=== PATIENT | female | born 1930 | race Caucasian/White ===

== ENCOUNTER 2019-08-25 16:16 | Inpatient (IN) | payer MEDICARE ==
[2019-08-25 16:36] LABS: #Basophils 0.1 thou/uL (0.0-0.2); #Eosinphils 0.1 thou/uL (0.0-0.7); #Lymphocytes 1.1 thou/uL (1.20-3.40); #Monocytes 0.6 thou/uL (0.11-0.59); #Neutrophils 4.4 thou/uL (1.40-6.50); %Basophils 0.9 % (0.0-1.0); %Eosinophils 1.8 % (0.0-10.0); %Lymphocytes 16.9 % (21.0-51.0); %Monocytes 10.1 % (0.0-10.0); %Neutrophils 70.3 % (42.0-75.0); Hemoglobin 13.2 g/dL (12.0-16.0); Mean Corpuscular HGB CONC 34.6 g/dL (32.0-36.0); Mean Corpuscular Hemoglobin 33.7 pg (27.0-31.0); Mean Corpuscular Volume 97.3 fL (78.0-98.0); Platelet Count 210 thou/uL (130-400); RBC Distribution Width 12.1 % (11.5-14.5); Red Blood Cell (RBC) Count 3.91 mill/uL (4.20-5.40); White Blood Cell (WBC) Count 6.2 thou/uL (4.8-10.8)
[2019-08-25 16:43] LABS: PTT 28.3 SEC (22.9-36.1); Prothrombin Time 13.5 SEC (12.0-14.7)
[2019-08-25 16:50] LABS: ALT (SGPT) 15 U/L (8-55); AST (SGOT) 19 U/L (5-34); Albumin 4.1 g/dL (3.4-4.8); Alkaline Phosphatase 50 U/L (40-110); Anion Gap 14 mmol/L (10-20); BUN (Urea Nitrogen) 17 mg/dL (9.8-20.1); Bilirubin, Total 0.4 mg/dL (0.2-1.2); CK (CPK) 122 U/L (29-168); Calc. Creatinine Clearance 0 mL/min (70-130); Calcium 9.5 mg/dL (7.8-10.44); Carbon Dioxide 22 mmol/L (23-31); Chloride 102 mmol/L (98-107); Estimated GFR-MDRD 41; Globulin 2.7 g/dL (2.4-3.5); Glucose 141 mg/dL (83-110); Potassium 3.9 mmol/L (3.5-5.1); Protein, Total 6.8 g/dL (6.0-8.3); Sodium 134 mmol/L (136-145)
[2019-08-25 17:12] LABS: CKMB 3.3 ng/mL (0-6.6)
--- NOTE | 2019-08-25 17:16 | RAD ---
PORTABLE CHEST: 08/25/19 HISTORY: TIA, altered mental status. Heart size within normal limits. There are atherosclerotic changes of the aorta. The lungs are clear of any infiltrative process. IMPRESSION: No active intrathoracic disease. POS: [facility]
[2019-08-25] MEDS ORDERED: risperiDONE 1 MG TAB ONE (17:26)
--- NOTE | 2019-08-25 17:28 | CT ---
CT OF BRAIN PERFORMED WITHOUT CONTRAST ENHANCEMENT: 08/25/19 HISTORY: Altered mental status. There is generalized ventricular and sulcal prominence. There is no signs for intracerebral hemorrhag e or extra-axial fluid collections. The mastoid air cells and visualized sinuses are clear. IMPRESSION: No acute intracranial abnormalities. POS: [facility]
[2019-08-25 18:10] LABS: Bilirubin Negative (Negative); Blood, Urine Negative (Negative); Clarity Clear (Clear); Glucose, Urine (Dipstick) Normal (Negative); Leukocyte Negative Leu/uL (Negative); Nitrite Negative (Negative); Protein, Urine (Dipstick) Negative (Neg-Trace); Urobilinogen Normal mg/dL (Less than 2)
[2019-08-25 19:45] LABS: Lactic Acid 1.2 mmol/L (0.5-2.2)
[2019-08-25 19:54] LABS: Troponin I 0.037 ng/mL (< 0.028)
[2019-08-25] MEDS ORDERED: Ondansetron PF 4 MG/2 ML Vial IVP PRN (20:10)
[2019-08-25] MEDS ORDERED: Nitroglycerin 0.4 MG TAB (25 Tab Bottle) SL PRN (20:13)
--- NOTE | 2019-08-25 21:00 | HP ---
PRESENTING COMPLAINT: Altered mental status, possible stroke. HISTORY OF PRESENT ILLNESS: Ms. Milagros Avalos is an 88-year-old female with a past medical history of dementia, group home resident at the [place], ileostomy, unclear reason, baseline aphasia, oriented at baseline to x1, who was brought in from the group home because of unresponsiveness. The patient on arrival in the ED was being worked up for stroke, but she became more awoken and conversant although markedly confused. She later had some episodes of agitation and was started back on her Risperdal. The patient during the time of interview is very confused, repeatedly talking about things on the wall. She is barely unable to talk about her name. She was noted with atrial fibrillation with RVR, which is new. She has been started on Cardizem drip. The patient denies any chest pain, although she is very unreliable. PAST MEDICAL HISTORY: Significant for dementia, CAD, ileostomy status, aphasia, GERD, hypothyroidism. ALLERGIES: PENICILLIN. HOME MEDICATIONS: See full medication list. CODE STATUS: The patient is DNR. REVIEW OF SYSTEMS: Unable to obtain given dementia. FAMILY HISTORY: Noncontributory in this 88-year-old female. PHYSICAL EXAMINATION: CURRENT VITAL SIGNS: Blood pressure of 134/83, pulse of 105, ranging up to 118 on Cardizem drip, O2 saturation is 95% on room air, respiratory rate of 17, temperature afebrile. GENERAL: Thin built elderly female awake, conversant, but markedly confused. HEENT: Head is atraumatic, normocephalic. Pupils are equal, reactive to light. Dry oral mucosa. NECK: No JVD. No carotid bruits. RESPIRATORY: Good air entry. No crepitation. CARDIOVASCULAR: S1, S2. Irregular rhythm with a loud A2. GI: Abdomen is full, soft. Ileostomy status in-situ, clear effluent in bag. EXTREMITIES: No pedal edema. No calf tenderness. NEUROLOGIC: The patient is awake, but confused. LABORATORY DATA: WBC 6.2, hemoglobin 13, platelets 210. INR 1.0, PTT 28. BUN 17, creatinine 1.23. Lactic acid 2.3, repeat of 1.2. Potassium 3.9, troponin 0.03, repeat of 0.037. Urinalysis was negative. Head CT shows no acute intracranial pathology. IMAGING DATA: Chest x-ray shows no active intrathoracic disease. EKG shows atrial fibrillation at a rate of 107 beats per minute. No ST-segment changes. IMPRESSION: 1. New onset atrial fibrillation with rapid ventricular response. 2. Baseline dementia. 3. History of hypertension. 4. Hypothyroidism. PLAN: We will admit the patient to telemetry unit. We will continue Cardizem drip. We will manage the patient for the following also. 1. Atrial fibrillation with RVR. We will obtain TSH as well as magnesium. Given history of hypothyroidism, we will restart Synthroid dosage. Continue Cardizem drip and wean as tolerated. We will add metoprolol to the patient's regimen for better rate control. In a.m., if the patient is tolerating Cardizem, we will consider to switch to Cardizem p.o. Given patient's dementia, I do not think the patient is a candidate for anticoagulation. We will discuss with daughter when she arrives on the risk and benefit of anticoagulation, which I would not advise in this elderly female. 2. Hypertension. Continue medications as outlined above. 3. Dementia. Resume Risperdal for behavior control. 4. DVT prophylaxis, subcutaneous Lovenox. 5. Advanced directives, the patient is a DNR. Total time spent in review of record, evaluation of the patient, and discussion was greater than 60 minutes. Job ID: [id number]
[2019-08-25] MEDS: Metoprolol Tartrate 50 MG TAB PO SCH (22:15)
[2019-08-25] MEDS: risperiDONE 0.25 MG TAB PO SCH (22:15)
[2019-08-25 23:18] LABS: Troponin I 0.035 ng/mL (< 0.028)
[2019-08-25] MEDS ORDERED: Metoprolol Tartrate 50 MG TAB PO SCH (23:45)
[2019-08-25] MEDS ORDERED: Diltiazem HCl 125 MG, Admixture Fee 1 EACH in Sodium Chloride 0.9% 100 ML IVPB SCH (23:45)
[2019-08-26 03:53] VITALS: BMI 21.7
[2019-08-26 05:14] LABS: #Basophils 0.1 thou/uL (0.0-0.2); #Eosinphils 0.1 thou/uL (0.0-0.7); #Lymphocytes 1.2 thou/uL (1.20-3.40); #Monocytes 0.6 thou/uL (0.11-0.59); #Neutrophils 5.3 thou/uL (1.40-6.50); %Basophils 0.8 % (0.0-1.0); %Lymphocytes 16.3 % (21.0-51.0); %Monocytes 8.1 % (0.0-10.0); %Neutrophils 73.8 % (42.0-75.0); Hemoglobin 12.6 g/dL (12.0-16.0); Mean Corpuscular HGB CONC 34.2 g/dL (32.0-36.0); Mean Corpuscular Hemoglobin 33.4 pg (27.0-31.0); Mean Corpuscular Volume 97.5 fL (78.0-98.0); Mean Platelet Volume 5.9 fL (7.4-10.4); Platelet Count 217 thou/uL (130-400); RBC Distribution Width 12.1 % (11.5-14.5); Red Blood Cell (RBC) Count 3.79 mill/uL (4.20-5.40); White Blood Cell (WBC) Count 7.2 thou/uL (4.8-10.8)
[2019-08-26 05:27] LABS: Anion Gap 12 mmol/L (10-20); BUN (Urea Nitrogen) 13 mg/dL (9.8-20.1); Calc. Creatinine Clearance 33 mL/min (70-130); Calcium 9.2 mg/dL (7.8-10.44); Carbon Dioxide 26 mmol/L (23-31); Chloride 101 mmol/L (98-107); Estimated GFR-MDRD 53; Glucose 117 mg/dL (83-110); Potassium 3.6 mmol/L (3.5-5.1); Sodium 135 mmol/L (136-145)
[2019-08-26] MEDS ORDERED: Diltiazem HCl 125 MG, Admixture Fee 1 EACH in Sodium Chloride 0.9% 100 ML IVPB SCH (08:15)
[2019-08-26] MEDS ORDERED: Prevnar 13-Val Conj/PF 0.5 ML SYRINGE IM ONE (09:00)
[2019-08-26] MEDS ORDERED: FLU VACC TS2019-20(65YR UP)/PF 180 MCG/0.5 ML SYRINGE IM ONE (09:00)
[2019-08-26] MEDS ORDERED: Enoxaparin Sodium 30 MG/0.3 ML SYRINGE SC SCH (09:00)
[2019-08-26] MEDS: risperiDONE 0.25 MG TAB PO SCH ×2 (09:41→20:45)
[2019-08-26] MEDS: Metoprolol Tartrate 50 MG TAB PO SCH ×2 (09:41→20:38)
[2019-08-26] MEDS: Sodium Chloride 0.9% 1,000 ML IV SCH (11:59)
--- NOTE | 2019-08-26 12:48 | PDOC.HOSPP ---
- Subjective Encounter Date: 08/26/19 Encounter Time: 11:00 Subjective: awake, not oriented follows simple verbal stimuli daughter at bedside - Objective Vital Signs & Weight: Vital Signs (12 hours) Temp Pulse Resp BP Pulse Ox 08/26/19 11:56 97.9 F 64 16 106/53 L 97 08/26/19 07:41 98.3 F 86 16 128/75 96 08/26/19 07:30 96 08/26/19 04:00 97.3 F L 68 16 122/59 L 96 Weight Weight 118 lb 6.4 oz I&O: 08/25/19 08/26/19 08/27/19 06:59 06:59 06:59 Intake Total 530 Output Total 1500 Balance -970 Result Diagrams: 08/26/19 04:57 08/26/19 04:57 Additional Labs: Accuchecks 08/25/19 16:28 POC Glucose 145 H Hospitalist ROS - Medication Medications: Active Medications Generic Name Dose Route Start Last Admin Trade Name Freq PRN Reason Stop Dose Admin Sodium Chloride 1,000 mls @ 70 mls/hr 08/26/19 12:00 08/26/19 11:59 Normal Saline 0.9% IV 1,000 mls .[id number] DENTON Administration Metoprolol Tartrate 50 mg 08/25/19 21:00 08/26/19 09:41 Lopressor PO 50 mg BID DENTON Administration Risperidone 0.5 mg 08/25/19 21:00 08/26/19 09:41 Risperidone PO 0.5 mg BID DENTON Administration - Exam General Appearance: awake alert Eye: PERRL, anicteric sclera ENT: no oropharyngeal lesions, moist mucosa Neck: supple, no JVD Heart: no murmur, irregular Respiratory: no wheezes, no rales Gastrointestinal: soft, non-tender, non-distended, normal bowel sounds Extremities: no cyanosis, no edema Neurological: cranial nerve grossly intact, no focal deficits Hosp A/P (1) Atrial fibrillation with RVR Code(s): I48.91 - UNSPECIFIED ATRIAL FIBRILLATION Status: Acute (2) Dementia Code(s): F03.90 - UNSPECIFIED DEMENTIA WITHOUT BEHAVIORAL DISTURBANCE Status: Chronic Qualifiers: Dementia type: Alzheimer's disease (3) CAD (coronary artery disease) Code(s): I25.10 - ATHSCL HEART DISEASE OF [place] CORONARY ARTERY W/O ANG PCTRS Status: Chronic Qualifiers: Coronary Disease-Associated Artery/Lesion type: [place] artery [place] vs. transplanted heart: [place] heart Associated angina: without angina Qualified Code(s): I25.10 - Atherosclerotic heart disease of [place] coronary artery without angina pectoris (4) HTN (hypertension) Code(s): I10 - ESSENTIAL (PRIMARY) HYPERTENSION Status: Chronic Qualifiers: Hypertension type: essential hypertension Qualified Code(s): I10 - Essential (primary) hypertension (5) Hypothyroidism Code(s): E03.9 - HYPOTHYROIDISM, UNSPECIFIED Status: Chronic Qualifiers: Hypothyroidism type: unspecified Qualified Code(s): E03.9 - Hypothyroidism , unspecified (6) H/O ileostomy Code(s): Z98.890 - OTHER SPECIFIED POSTPROCEDURAL STATES Status: Chronic - Plan prior h/o stent x1 in 2009, had heavy GI bleeding post antiplatelet agents and had total colectomy with ileostomy per daughter no h/o afib in the past is on cardizem 5mg/hr, lopressor 50mg bid, asp, lovenox full dose for now cardiology consult, echo pt is dnar, d/w daughter and POA at bedside free T3,4 and TSH in am is a resident of [facility] has dementia and is on risperdal bid for behavioural issues with dementia per daughter
[2019-08-26] MEDS ORDERED: Amiodarone 150 MG, Admixture Fee 1 EACH in Dextrose 5% in Water 100 ML IVPB SCH (14:00)
[2019-08-26] MEDS: Acetaminophen 325 MG TAB PO PRN (14:29)
[2019-08-26] MEDS: Amiodarone 450 MG in Dextrose 5% in Water 250 ML IVPB SCH ×2 (14:35→23:45)
--- NOTE | 2019-08-26 19:33 | CON ---
DATE OF CONSULTATION: HISTORY OF PRESENT ILLNESS: Milagros Avalos is an 88-year-old white female, admitted with mental status changes and atrial fibrillation. In 2009 while living in [place], she had myocardial infarction and a stent was placed. She has not had any further coronary interventions, however, is of note that she is on Ranexa. She has dementia and baseline aphasia and possible strokes in the past. She moved to [place] with her daughter and 2 weeks ago, she was placed in [facility]. She had agitation and unresponsiveness and was transferred for further evaluation. She was found to be in atrial fibrillation with fast ventricular response. She denies any palpitations, chest pain, or shortness of breath. PAST MEDICAL HISTORY: Coronary artery disease, dementia, aphasia, hypothyroidism. MEDICATIONS: 1. Aspirin 81 daily. 2. Plavix 75 mg daily. 3. Carvedilol 3.125 b.i.d. 4. Ranexa 500 mg b.i.d. 5. Synthroid 75 mcg daily. 6. Nitroglycerin p.r.n. 7. Risperdal 0.5 b.i.d. ALLERGIES: PENICILLIN. SOCIAL HISTORY: Unobtainable due to her aphasia and dementia. FAMILY HISTORY: Unobtainable due to her aphasia and dementia. REVIEW OF SYSTEMS: Unobtainable due to her aphasia and dementia. PHYSICAL EXAMINATION: VITAL SIGNS: Blood pressure 106/53, pulse of 64. HEENT: PERRL. NECK: Supple. CHEST: Clear. CARDIAC: S1 and S2 normal without any S3, S4, or murmurs. Carotid upstrokes normal without bruits. ABDOMEN: Normal bowel sounds without tenderness or organomegaly. EXTREMITIES: Revealed no clubbing, cyanosis, or edema. NEUROLOGICAL: The patient is mildly aphasic. LABORATORY DATA: EKG revealed atrial fibrillation with fast ventricular response with poor R-wave progression. There also is evidence of possible inferior infarction. Hemoglobin 12.6, hematocrit 37.0, white count 7200, platelets 217, 000. Sodium 135, potassium 3.6, chloride 101, carbon dioxide 26, BUN 13, creatinine 0.99. Troponin I 0.037. TSH is normal. IMPRESSION: 1. Newly documented atrial fibrillation. She converted to sinus rhythm, but still has frequent runs of atrial fibrillation lasting 10 to 15 seconds. 2. Mental status changes. 3. Dementia. 4. History of myocardial infarction with stent placement in 2009. 5. Hypertension. RECOMMENDATIONS: Ms. Avalos's daughter states that she only had a fall 2-3 years ago while living in [place] when she was leaning over trying to kill an insect. With history of TIA like symptoms and atrial fibrillation, I do feel that she should be anticoagulated as long as she does not start to have significant falls. Plavix will be discontinued. Instead, she will be placed on low-dose Eliquis-2.5 mg b.i.d. due to her weight and age of greater than 80. Echocardiogram will be performed to assess left ventricular function. She will be started on intravenous amiodarone and hopefully suppression of her atrial fibrillation. Job ID: [id number] MTDD
[2019-08-26] MEDS: Dorzolamide HCl 2% Ophth Soln 10 ml Bottle EA EYE SCH (20:37)
[2019-08-26] MEDS: Apixaban 2.5 MG TAB PO SCH (20:38)
[2019-08-26] MEDS ORDERED: Enoxaparin Sodium 60 MG/0.6 ML SYRINGE SC SCH (21:00)
[2019-08-26] MEDS ORDERED: TIMOLOL MALEATE EA EYE SCH (21:00)
[2019-08-26] MEDS: Latanoprost 0.005% Ophth Soln 2.5 ml Bottle EA EYE SCH (23:45)
[2019-08-27] MEDS: Sodium Chloride 0.9% 1,000 ML IV SCH ×2 (02:02→16:22)
[2019-08-27 05:31] LABS: Hemoglobin 12.1 g/dL (12.0-16.0); Platelet Count 165 thou/uL (130-400)
[2019-08-27] MEDS: Levothyroxine Sodium 75 MCG TAB PO SCH (06:03)
[2019-08-27] MEDS: Dorzolamide HCl 2% Ophth Soln 10 ml Bottle EA EYE SCH ×2 (08:52→21:35)
[2019-08-27] MEDS: Metoprolol Tartrate 50 MG TAB PO SCH (08:52)
[2019-08-27] MEDS: Aspirin 81 mg Enteric Coated Tablet PO SCH (08:52)
[2019-08-27] MEDS: Apixaban 2.5 MG TAB PO SCH ×2 (08:52→21:35)
[2019-08-27] MEDS: risperiDONE 0.25 MG TAB PO SCH ×2 (08:53→21:35)
[2019-08-27] MEDS: HYDROcodone/Acetaminophen 5/325 mg Tablet PO PRN ×2 (08:56→22:13)
[2019-08-27] MEDS ORDERED: Clopidogrel Bisulfate 75 MG TAB PO SCH (09:00)
--- NOTE | 2019-08-27 11:03 | PDOC.HOSPP ---
- Subjective Encounter Date: 08/27/19 Encounter Time: 09:20 Subjective: awake, not in distress speaks a few words - Objective Vital Signs & Weight: Vital Signs (12 hours) Temp Pulse Resp BP Pulse Ox 08/27/19 07:34 97.7 F 66 18 140/87 99 08/27/19 07:30 99 08/27/19 03:20 97.8 F 62 20 128/56 L 98 08/26/19 23:32 97.5 F L 67 20 143/65 H 96 Weight Weight 118 lb 6.4 oz I&O: 08/26/19 08/27/19 08/28/19 06:59 06:59 06:59 Intake Total 1130 300 Output Total 1500 0 Balance -370 300 Result Diagrams: 08/27/19 05:03 08/27/19 05:03 Hospitalist ROS - Medication Medications: Active Medications Generic Name Dose Route Start Last Admin Trade Name Freq PRN Reason Stop Dose Admin Acetaminophen 650 mg 08/25/19 20:10 08/26/19 14:29 Tylenol PO 650 mg Q4H PRN Administration Headache/Fever/Mild Pain (1-3) Hydrocodone Bitart/Acetaminophen 1 tab 08/25/19 20:10 08/27/19 08:56 [place] 5/325 PO 1 tab Q4H PRN Administration Moderate Pain (4-6) Apixaban 2.5 mg 08/26/19 21:00 08/27/19 08:52 Eliquis PO 2.5 mg BID DENTON Administration Aspirin 81 mg 08/27/19 09:00 08/27/19 08:52 Ecotrin PO 81 mg DAILY DENTON Administration Dorzolamide HCl 1 drop 08/26/19 21:00 08/27/19 08:52 Trusopt 2% Ophth Soln EA EYE 1 drop BID DENTON Administration Diltiazem HCl 125 mg/ 125 mls @ 5 mls/hr 08/26/19 08:15 08/27/19 06:04 Miscellaneous Medication 1 IVPB 125 mls each/ Sodium Chloride INF DENTON Administration Protocol As Directed Sodium Chloride 1,000 mls @ 70 mls/hr 08/26/19 12:00 08/27/19 02:02 Normal Saline 0.9% IV 1,000 mls .[id number] DENTON Administration Amiodarone HCl 450 mg/ 259 mls @ 0 mls/hr 08/26/19 13:00 08/26/19 23:45 Dextrose/Water IVPB 259 mls INF DENTON Administration Protocol Per Protocol Latanoprost 1 drop 08/26/19 21:00 08/26/19 23:45 Xalatan 0.005% Ophth Soln EA EYE 1 drop HS DENTON Administration Levothyroxine Sodium 75 mcg 08/27/19 06:00 08/27/19 06:03 Synthroid PO 75 mcg 0600 DENTON Administration Metoprolol Tartrate 50 mg 08/25/19 21:00 08/27/19 08:52 Lopressor PO 50 mg BID DENTON Administration Ranolazine 500 mg 08/26/19 21:00 08/27/19 08:52 Ranexa PO 500 mg BID DENTON Administration Risperidone 0.5 mg 08/25/19 21:00 08/27/19 08:53 Risperidone PO 0.5 mg BID DENTON Administration - Exam General Appearance: awake alert Eye: PERRL, anicteric sclera ENT: no oropharyngeal lesions, moist mucosa Neck: supple, no JVD Heart: no murmur, irregular Respiratory: no wheezes, no rales Gastrointestinal: soft, non-tender, non-distended, normal bowel sounds Extremities: no cyanosis, no edema Neurological: cranial nerve grossly intact, no focal deficits Hosp A/P (1) Atrial fibrillation with RVR Code(s): I48.91 - UNSPECIFIED ATRIAL FIBRILLATION Status: Acute (2) Dementia Code(s): F03.90 - UNSPECIFIED DEMENTIA WITHOUT BEHAVIORAL DISTURBANCE Status: Chronic Qualifiers: Dementia type: Alzheimer's disease (3) CAD (coronary artery disease) Code(s): I25.10 - ATHSCL HEART DISEASE OF [place] CORONARY ARTERY W/O ANG PCTRS Status: Chronic Qualifiers: Coronary Disease-Associated Artery/Lesion type: [place] artery [place] vs. transplanted heart: tribe heart Associated angina: without angina Qualified Code(s): I25.10 - Atherosclerotic heart disease of [place] coronary artery without angina pectoris (4) HTN (hypertension) Code(s): I10 - ESSENTIAL (PRIMARY) HYPERTENSION Status: Chronic Qualifiers: Hypertension type: essential hypertension Qualified Code(s): I10 - Essential (primary) hypertension (5) Hypothyroidism Code(s): E03.9 - HYPOTHYROIDISM, UNSPECIFIED Status: Chronic Qualifiers: Hypothyroidism type: unspecified Qualified Code(s): E03.9 - Hypothyroidism , unspecified (6) H/O ileostomy Code(s): Z98.890 - OTHER SPECIFIED POSTPROCEDURAL STATES Status: Chronic - Plan prior h/o stent x1 in 2009, had heavy GI bleeding post antiplatelet agents and had total colectomy with ileostomy per daughter no h/o afib in the past is on cardizem 5mg/hr, amiodarone drip, lopressor 50mg bid, asp, eliquis low dose bid echo shows normal ef, LA size of 3.4cms pt is dnar, d/w daughter and POA at bedside (08/26/2019) free T3,4 and TSH in am is a resident of [facility] has dementia and is on risperdal bid for behavioural issues with dementia per daughter
[2019-08-27] MEDS: Carvedilol 3.125 MG TAB PO SCH (16:20)
[2019-08-27] MEDS: Amiodarone 200 MG TAB PO SCH (21:35)
[2019-08-27] MEDS: Latanoprost 0.005% Ophth Soln 2.5 ml Bottle EA EYE SCH (21:36)
[2019-08-28] MEDS: hydrALAZINE 20 MG/ML VIAL SLOW IVP PRN (01:19)
[2019-08-28 05:26] LABS: Thyroid Stimulating Hormone 3.8734 uIU/mL (0.35-4.94)
[2019-08-28] MEDS: Levothyroxine Sodium 75 MCG TAB PO SCH (05:37)
[2019-08-28] MEDS: Sodium Chloride 0.9% 1,000 ML IV SCH ×2 (05:37→20:43)
[2019-08-28 06:23] LABS: Free T4 (Free Thyroxine) 1.31 ng/dL (0.70-1.48)
[2019-08-28 07:47] LABS: #Eosinphils 0.1 thou/uL (0.0-0.7); #Lymphocytes 0.7 thou/uL (1.20-3.40); #Monocytes 0.6 thou/uL (0.11-0.59); #Neutrophils 6.1 thou/uL (1.40-6.50); %Basophils 0.5 % (0.0-1.0); %Eosinophils 1.6 % (0.0-10.0); %Lymphocytes 8.9 % (21.0-51.0); %Monocytes 7.4 % (0.0-10.0); %Neutrophils 81.6 % (42.0-75.0); Hemoglobin 11.9 g/dL (12.0-16.0); Mean Corpuscular HGB CONC 35.2 g/dL (32.0-36.0); Mean Corpuscular Hemoglobin 34.4 pg (27.0-31.0); Mean Corpuscular Volume 97.8 fL (78.0-98.0); Mean Platelet Volume 6.5 fL (7.4-10.4); Platelet Count 179 thou/uL (130-400); RBC Distribution Width 12.1 % (11.5-14.5); Red Blood Cell (RBC) Count 3.45 mill/uL (4.20-5.40); White Blood Cell (WBC) Count 7.4 thou/uL (4.8-10.8)
[2019-08-28 08:00] LABS: Anion Gap 11 mmol/L (10-20); BUN (Urea Nitrogen) 11 mg/dL (9.8-20.1); Calc. Creatinine Clearance 42 mL/min (70-130); Calcium 8.9 mg/dL (7.8-10.44); Carbon Dioxide 21 mmol/L (23-31); Chloride 102 mmol/L (98-107); Estimated GFR-MDRD 69; Glucose 121 mg/dL (83-110); Potassium 3.2 mmol/L (3.5-5.1); Sodium 131 mmol/L (136-145)
[2019-08-28] MEDS: HYDROcodone/Acetaminophen 5/325 mg Tablet PO PRN ×2 (08:40→13:58)
[2019-08-28] MEDS: Carvedilol 3.125 MG TAB PO SCH ×2 (08:43→17:22)
[2019-08-28] MEDS: risperiDONE 0.25 MG TAB PO SCH ×2 (08:43→20:44)
[2019-08-28] MEDS: Amiodarone 200 MG TAB PO SCH ×2 (08:43→20:44)
[2019-08-28] MEDS: Apixaban 2.5 MG TAB PO SCH ×2 (08:43→20:44)
[2019-08-28] MEDS: Aspirin 81 mg Enteric Coated Tablet PO SCH (08:44)
[2019-08-28] MEDS ORDERED: Potassium Chloride 20 MEQ TAB PO SCH (11:15)
[2019-08-28] MEDS: Dorzolamide HCl 2% Ophth Soln 10 ml Bottle EA EYE SCH ×2 (11:19→20:45)
--- NOTE | 2019-08-28 11:35 | PDOC.HOSPP ---
- Subjective Encounter Date: 08/28/19 Encounter Time: 10:15 Subjective: awake, not in distress - Objective Vital Signs & Weight: Vital Signs (12 hours) Temp Pulse Resp BP BP BP Pulse Ox 08/28/19 07:57 85 08/28/19 07:44 98.4 F 116 H 14 145/90 H 98 08/28/19 04:05 98.0 F 79 16 148/83 H 95 08/28/19 01:19 76 165/74 H 08/28/19 01:17 76 165/74 H 08/28/19 00:00 97.9 F 83 18 173/80 H 98 Weight Admit Weight 118 lb 6.4 oz Weight 118 lb 6.4 oz I&O: 08/27/19 08/28/19 08/29/19 06:59 06:59 06:59 Intake Total 1130 1152 Output Total 1500 700 Balance -370 452 Result Diagrams: 08/28/19 07:26 08/28/19 07:25 Hospitalist ROS - Medication Medications: Active Medications Generic Name Dose Route Start Last Admin Trade Name Freq PRN Reason Stop Dose Admin Acetaminophen 650 mg 08/25/19 20:10 08/26/19 14:29 Tylenol PO 650 mg Q4H PRN Administration Headache/Fever/Mild Pain (1-3) Hydrocodone Bitart/Acetaminophen 1 tab 08/25/19 20:10 08/28/19 08:40 [place] 5/325 PO 1 tab Q4H PRN Administration Moderate Pain (4-6) Amiodarone HCl 400 mg 08/27/19 21:00 08/28/19 08:43 Cordarone PO 400 mg BID DENTON Administration Apixaban 2.5 mg 08/26/19 21:00 08/28/19 08:43 Eliquis PO 2.5 mg BID DNETON Administration Aspirin 81 mg 08/27/19 09:00 08/28/19 08:44 Ecotrin PO 81 mg DAILY DENTON Administration Carvedilol 3.125 mg 08/27/19 17:00 08/28/19 08:43 Coreg PO 3.125 mg BID-WM DENTON Administration Dorzolamide HCl 1 drop 08/26/19 21:00 08/28/19 11:19 Trusopt 2% Ophth Soln EA EYE 1 drop BID DENTON Administration Hydralazine HCl 10 mg 08/25/19 20:13 12/24/19 01:19 Apresoline SLOW IVP 10 mg Q4H PRN Administration SBP GREATER THAN 160 Sodium Chloride 1,000 mls @ 70 mls/hr 08/26/19 12:00 08/28/19 05:37 Normal Saline 0.9% IV 1,000 mls .[id number] DENTON Administration Latanoprost 1 drop 08/26/19 21:00 08/27/19 21:36 Xalatan 0.005% Ophth Soln EA EYE 1 drop HS DENTON Administration Levothyroxine Sodium 75 mcg 08/27/19 06:00 08/28/19 05:37 Synthroid PO 75 mcg 0600 DENTON Administration Ranolazine 500 mg 08/26/19 21:00 08/28/19 08:40 Ranexa PO 500 mg BID DENTON Administration Risperidone 0.5 mg 08/25/19 21:00 08/28/19 08:43 Risperidone PO 0.5 mg BID DENTON Administration - Exam General Appearance: NAD, awake alert Eye: PERRL, anicteric sclera ENT: no oropharyngeal lesions, moist mucosa Neck: supple, no JVD Heart: no murmur, irregular Respiratory: no wheezes, no ronchi Gastrointestinal: soft, non-tender, non-distended, normal bowel sounds Extremities: no cyanosis, no edema Neurological: cranial nerve grossly intact, no focal deficits Hosp A/P (1) Atrial fibrillation with RVR Code(s): I48.91 - UNSPECIFIED ATRIAL FIBRILLATION Status: Acute (2) Dementia Code(s): F03.90 - UNSPECIFIED DEMENTIA WITHOUT BEHAVIORAL DISTURBANCE Status: Chronic Qualifiers: Dementia type: Alzheimer's disease (3) CAD (coronary artery disease) Code(s): I25.10 - ATHSCL HEART DISEASE OF [place] CORONARY ARTERY W/O ANG PCTRS Status: Chronic Qualifiers: Coronary Disease-Associated Artery/Lesion type: [place] artery [place] vs. transplanted heart: [place] heart Associated angina: without angina Qualified Code(s): I25.10 - Atherosclerotic heart disease of [place] coronary artery without angina pectoris (4) HTN (hypertension) Code(s): I10 - ESSENTIAL (PRIMARY) HYPERTENSION Status: Chronic Qualifiers: Hypertension type: essential hypertension Qualified Code(s): I10 - Essential (primary) hypertension (5) Hypothyroidism Code(s): E03.9 - HYPOTHYROIDISM, UNSPECIFIED Status: Chronic Qualifiers: Hypothyroidism type: unspecified Qualified Code(s): E03.9 - Hypothyroidism , unspecified (6) H/O ileostomy Code(s): Z98.890 - OTHER SPECIFIED POSTPROCEDURAL STATES Status: Chronic - Plan prior h/o stent x1 in 2009, had heavy GI bleeding post antiplatelet agents and had total colectomy with ileostomy per daughter no h/o afib in the past is off cardizem 5mg/hr and amiodarone drip, coreg bid, oral amiodarone, asp, eliquis low dose bid echo shows normal ef, LA size of 3.4cms pt is dnar, d/w daughter and POA at bedside (08/26/2019) free T3,4 and TSH is normal is a resident of [facility] has dementia and is on risperdal bid for behavioural issues with dementia per daughter dc plan per cardio adv
--- NOTE | 2019-08-28 14:34 | EKG ---
Test Reason : Blood Pressure : / mmHG Vent. Rate : 105 BPM Atrial Rate : 153 BPM P-R Int : 000 ms QRS Dur : 070 ms QT Int : 302 ms P-R-T Axes : 000 -19 137 degrees QTc Int : 399 ms Atrial fibrillation with rapid ventricular response with premature ventricular or aberrantly conducte d complexes Inferior infarct , age undetermined Anterior infarct , age undetermined Abnormal ECG Confirmed by ROSALINA BRANNON DO ([id number]), editor sound GRETTA DEAN ([id number]) on 08/28/2019 2:33:23 PM Referred By: Confirmed By:ROSALINA BRANNON DO
--- NOTE | 2019-08-28 20:22 | PDOC.EVN ---
Event Note - Event Note Event Note: Notified by RN, re: status change from Stroke to Tele. Patient admitted with Afib RVR and AMS. She is apparently at baseline and with difficulty communicating at baseline. At present no interventions/management from neuro standpoint. Will move patient to Tele.
[2019-08-28] MEDS: Latanoprost 0.005% Ophth Soln 2.5 ml Bottle EA EYE SCH (20:44)
[2019-08-29] MEDS: Levothyroxine Sodium 75 MCG TAB PO SCH (04:50)
[2019-08-29 05:24] LABS: Anion Gap 15 mmol/L (10-20); BUN (Urea Nitrogen) 10 mg/dL (9.8-20.1); Calc. Creatinine Clearance 41 mL/min (70-130); Calcium 8.5 mg/dL (7.8-10.44); Carbon Dioxide 18 mmol/L (23-31); Chloride 104 mmol/L (98-107); Estimated GFR-MDRD 68; Glucose 111 mg/dL (83-110); Potassium 3.6 mmol/L (3.5-5.1); Sodium 133 mmol/L (136-145)
[2019-08-29] MEDS: Amiodarone 200 MG TAB PO SCH ×2 (08:36→23:26)
[2019-08-29] MEDS: risperiDONE 0.25 MG TAB PO SCH ×2 (08:36→23:25)
[2019-08-29] MEDS: Aspirin 81 mg Enteric Coated Tablet PO SCH (08:36)
[2019-08-29] MEDS: Apixaban 2.5 MG TAB PO SCH ×2 (08:37→23:26)
[2019-08-29] MEDS: Carvedilol 3.125 MG TAB PO SCH ×2 (08:37→17:18)
[2019-08-29] MEDS: Dorzolamide HCl 2% Ophth Soln 10 ml Bottle EA EYE SCH (08:37)
--- NOTE | 2019-08-29 12:30 | PDOC.HOSPP ---
- Subjective Encounter Date: 08/29/19 Encounter Time: 09:15 Subjective: awaken, not in distress mumbles a few words, cannot make out what she says. - Objective Vital Signs & Weight: Vital Signs (12 hours) Temp Pulse Resp BP Pulse Ox 08/29/19 11:54 97.4 F L 99 18 110/76 96 08/29/19 07:45 98.8 F 102 H 16 141/105 H 95 08/29/19 04:12 99.0 F 78 18 133/83 98 Weight Admit Weight 118 lb 6.4 oz Weight 118 lb 6.4 oz I&O: 08/28/19 08/29/19 08/30/19 06:59 06:59 06:59 Intake Total 1152 2218 Output Total 700 300 Balance 452 5158 Result Diagrams: 08/28/19 07:26 08/29/19 05:00 Hospitalist ROS - Medication Medications: Active Medications Generic Name Dose Route Start Last Admin Trade Name Freq PRN Reason Stop Dose Admin Acetaminophen 650 mg 08/25/19 20:10 08/26/19 14:29 Tylenol PO 650 mg Q4H PRN Administration Headache/Fever/Mild Pain (1-3) Hydrocodone Bitart/Acetaminophen 1 tab 08/25/19 20:10 08/28/19 13:58 [place] 5/325 PO 1 tab Q4H PRN Administration Moderate Pain (4-6) Amiodarone HCl 400 mg 08/27/19 21:00 08/29/19 08:36 Cordarone PO 400 mg BID DENTON Administration Apixaban 2.5 mg 08/26/19 21:00 08/29/19 08:37 Eliquis PO 2.5 mg BID DENTON Administration Aspirin 81 mg 08/27/19 09:00 08/29/19 08:36 Ecotrin PO 81 mg DAILY DENTON Administration Carvedilol 3.125 mg 08/27/19 17:00 08/29/19 08:37 Coreg PO 3.125 mg BID-WM DENTON Administration Dorzolamide HCl 1 drop 08/26/19 21:00 08/29/19 08:37 Trusopt 2% Ophth Soln EA EYE 1 drop BID DENTON Administration Hydralazine HCl 10 mg 08/25/19 20:13 08/28/19 01:19 Apresoline SLOW IVP 10 mg Q4H PRN Administration SBP GREATER THAN 160 Latanoprost 1 drop 08/26/19 21:00 08/28/19 20:44 Xalatan 0.005% Ophth Soln EA EYE 1 drop HS DENTON Administration Levothyroxine Sodium 75 mcg 08/27/19 06:00 08/29/19 04:50 Synthroid PO 75 mcg 0600 DENTON Administration Ondansetron HCl 4 mg 08/25/19 20:10 08/28/19 13:59 Zofran IVP 4 mg Q6H PRN Administration Nausea/Vomiting Ranolazine 500 mg 08/26/19 21:00 08/29/19 08:37 Ranexa PO 500 mg BID DENTON Administration Risperidone 0.5 mg 08/25/19 21:00 08/29/19 08:36 Risperidone PO 0.5 mg BID DENTON Administration - Exam General Appearance: awake alert Eye: PERRL, anicteric sclera ENT: no oropharyngeal lesions, moist mucosa Neck: supple, no JVD Heart: RRR, no murmur Respiratory: no wheezes, no rales Gastrointestinal: soft, non-tender, non-distended, normal bowel sounds Extremities: no cyanosis, no edema Neurological: cranial nerve grossly intact, no focal deficits Hosp A/P (1) Atrial fibrillation with RVR Code(s): I48.91 - UNSPECIFIED ATRIAL FIBRILLATION Status: Acute (2) Dementia Code(s): F03.90 - UNSPECIFIED DEMENTIA WITHOUT BEHAVIORAL DISTURBANCE Status: Chronic Qualifiers: Dementia type: Alzheimer's disease (3) CAD (coronary artery disease) Code(s): I25.10 - ATHSCL HEART DISEASE OF [place] CORONARY ARTERY W/O ANG PCTRS Status: Chronic Qualifiers: Coronary Disease-Associated Artery/Lesion type: [place] artery [place] vs. transplanted heart: [place] heart Associated angina: without angina Qualified Code(s): I25.10 - Atherosclerotic heart disease of [place] coronary artery without angina pectoris (4) HTN (hypertension) Code(s): I10 - ESSENTIAL (PRIMARY) HYPERTENSION Status: Chronic Qualifiers: Hypertension type: essential hypertension Qualified Code(s): I10 - Essential (primary) hypertension (5) Hypothyroidism Code(s): E03.9 - HYPOTHYROIDISM, UNSPECIFIED Status: Chronic Qualifiers: Hypothyroidism type: unspecified Qualified Code(s): E03.9 - Hypothyroidism , unspecified (6) H/O ileostomy Code(s): Z98.890 - OTHER SPECIFIED POSTPROCEDURAL STATES Status: Chronic - Plan prior h/o stent x1 in 2009, had heavy GI bleeding post antiplatelet agents and had total colectomy with ileostomy per daughter no h/o afib in the past is off cardizem 5mg/hr and amiodarone drip, coreg bid, oral amiodarone, asp, eliquis low dose bid echo shows normal ef, LA size of 3.4cms pt is dnar, d/w daughter and POA at bedside (08/26/2019) free T3,4 and TSH is normal is a resident of [facility] has dementia and is on risperdal bid for behavioural issues with dementia per daughter dc plan to snf whenever they are ready to take her back. dc iv fluids
[2019-08-29] MEDS: Sodium Chloride 0.9% 1,000 ML IV SCH (13:07)
[2019-08-29] MEDS ORDERED: Clopidogrel Bisulfate 75 MG TAB ONE (23:55)
[2019-08-30] MEDS: Latanoprost 0.005% Ophth Soln 2.5 ml Bottle EA EYE SCH (00:09)
[2019-08-30] MEDS: Dorzolamide HCl 2% Ophth Soln 10 ml Bottle EA EYE SCH ×2 (00:09→10:23)
[2019-08-30] MEDS: hydrALAZINE 20 MG/ML VIAL SLOW IVP PRN (03:32)
[2019-08-30 05:15] LABS: Hemoglobin 11.6 g/dL (12.0-16.0); Platelet Count 182 thou/uL (130-400)
[2019-08-30] MEDS: Levothyroxine Sodium 75 MCG TAB PO SCH (05:58)
[2019-08-30] MEDS: Acetaminophen 325 MG TAB PO PRN (06:07)
[2019-08-30 08:02] VITALS: BP 152/79; TEMP 97.6
[2019-08-30] MEDS: Apixaban 2.5 MG TAB PO SCH (10:22)
[2019-08-30] MEDS: Aspirin 81 mg Enteric Coated Tablet PO SCH (10:22)
[2019-08-30] MEDS: Amiodarone 200 MG TAB PO SCH (10:22)
[2019-08-30] MEDS: risperiDONE 0.25 MG TAB PO SCH (10:22)
[2019-08-30] MEDS: Carvedilol 3.125 MG TAB PO SCH (10:23)
--- NOTE | 2019-08-30 12:32 | PDOC.HOSPP ---
- Subjective Encounter Date: 08/30/19 Encounter Time: 09:45 Subjective: awake, not oriented, not in distress - Objective Vital Signs & Weight: Vital Signs (12 hours) Temp Pulse Resp BP Pulse Ox 08/30/19 08:00 97.6 F 79 18 152/79 H 98 08/30/19 04:00 97.4 F L 84 20 143/71 H 96 08/30/19 03:32 89 Weight Admit Weight 118 lb 6.4 oz Weight 118 lb 6.4 oz I&O: 08/29/19 08/30/19 08/31/19 06:59 06:59 06:59 Intake Total 2218 Output Total 300 500 Balance 1918 -500 Result Diagrams: 08/30/19 04:58 08/30/19 04:58 Hospitalist ROS - Medication Medications: Active Medications Generic Name Dose Route Start Last Admin Trade Name Freq PRN Reason Stop Dose Admin Acetaminophen 650 mg 08/25/19 20:10 08/30/19 06:07 Tylenol PO 650 mg Q4H PRN Administration Headache/Fever/Mild Pain (1-3) Hydrocodone Bitart/Acetaminophen 1 tab 08/25/19 20:10 08/28/19 13:58 [place] 5/325 PO 1 tab Q4H PRN Administration Moderate Pain (4-6) Amiodarone HCl 400 mg 08/27/19 21:00 08/30/19 10:22 Cordarone PO 400 mg BID DENTON Administration Apixaban 2.5 mg 08/26/19 21:00 08/30/19 10:22 Eliquis PO 2.5 mg BID DENT[place] Administration Aspirin 81 mg 08/27/19 09:00 08/30/19 10:22 Ecotrin PO 81 mg DAILY DENTON Administration Carvedilol 3.125 mg 08/27/19 17:00 08/30/19 10:23 Coreg PO 3.125 mg BID-WM DENTON Administration Dorzolamide HCl 1 drop 08/26/19 21:00 08/30/19 10:23 Trusopt 2% Ophth Soln EA EYE 1 drop BID DENTON Administration Hydralazine HCl 10 mg 08/25/19 20:13 08/30/19 03:32 Apresoline SLOW IVP 10 mg Q4H PRN Administration SBP GREATER THAN 160 Latanoprost 1 drop 08/26/19 21:00 08/30/19 00:09 Xalatan 0.005% Ophth Soln EA EYE 1 drop HS DENTON Administration Levothyroxine Sodium 75 mcg 08/27/19 06:00 08/30/19 05:58 Synthroid PO 75 mcg 0600 D[place] Administration Ondansetron HCl 4 mg 08/25/19 20:10 08/28/19 13:59 Zofran IVP 4 mg Q6H PRN Administration Nausea/Vomiting Ranolazine 500 mg 08/26/19 21:00 08/30/19 10:22 Ranexa PO 500 mg BID D[place] Administration Risperidone 0.5 mg 08/25/19 21:00 08/30/19 10:22 Risperidone PO 0.5 mg BID D[place] Administration - Exam General Appearance: awake alert Eye: PERRL, anicteric sclera ENT: no oropharyngeal lesions, moist mucosa Neck: supple, no JVD Heart: RRR, no murmur Respiratory: no wheezes, no rales Gastrointestinal: soft, non-tender, non-distended, normal bowel sounds Extremities: no cyanosis, no edema Neurological: cranial nerve grossly intact, no focal deficits Hosp A/P (1) Atrial fibrillation with RVR Code(s): I48.91 - UNSPECIFIED ATRIAL FIBRILLATION Status: Acute (2) Dementia Code(s): F03.90 - UNSPECIFIED DEMENTIA WITHOUT BEHAVIORAL DISTURBANCE Status: Chronic Qualifiers: Dementia type: Alzheimer's disease (3) CAD (coronary artery disease) Code(s): I25.10 - ATHSCL HEART DISEASE OF [place] CORONARY ARTERY W/O ANG PCTRS Status: Chronic Qualifiers: Coronary Disease-Associated Artery/Lesion type: [place] artery [place] vs. transplanted heart: [place] heart Associated angina: without angina Qualified Code(s): I25.10 - Atherosclerotic heart disease of [place] coronary artery without angina pectoris (4) HTN (hypertension) Code(s): I10 - ESSENTIAL (PRIMARY) HYPERTENSION Status: Chronic Qualifiers: Hypertension type: essential hypertension Qualified Code(s): I10 - Essential (primary) hypertension (5) Hypothyroidism Code(s): E03.9 - HYPOTHYROIDISM, UNSPECIFIED Status: Chronic Qualifiers: Hypothyroidism type: unspecified Qualified Code(s): E03.9 - Hypothyroidism , unspecified (6) H/O ileostomy Code(s): Z98.890 - OTHER SPECIFIED POSTPROCEDURAL STATES Status: Chronic - Plan prior h/o stent x1 in 2009, had heavy GI bleeding post antiplatelet agents and had total colectomy with ileostomy per daughter no h/o afib in the past is off cardizem 5mg/hr and amiodarone drip, on coreg bid, oral amiodarone, asp, eliquis low dose bid echo shows normal ef, LA size of 3.4cms pt is dnar, d/w daughter and POA at bedside (08/26/2019) free T3,4 and TSH is normal is a resident of [facility] has dementia and is on risperdal bid for behavioural issues with dementia per daughter dc plan to snf today
--- NOTE | 2019-08-30 19:21 | DIS ---
DATE OF ADMISSION: 08/25/2019 DATE OF DISCHARGE: 08/30/2019 DISCHARGE DISPOSITION: [facility]. PRIMARY DISCHARGE DIAGNOSIS: New-onset atrial fibrillation with RVR, in sinus rhythm. SECONDARY DISCHARGE DIAGNOSES: 1. Dementia. 2. Coronary artery disease. 3. Hypertension. 4. Hypothyroidism. 5. History of ileostomy. PROCEDURES DONE DURING HOSPITALIZATION: Chest x-ray showed no acute intrathoracic disease. CT of brain showed no acute intracranial abnormality. Echo with 2D Doppler showed EF of 55% to 60%. Blood cultures x2, no growth. Urine culture, no growth. H and H are 11 and 33, platelet count 182, MCV is 97. BUN 10, creatinine 0.8. Free T4 of 1.3, free T3 of 2.31, TSH 3.87. DISCHARGE MEDICATIONS: 1. Aspirin 81 mg p.o. daily. 2. Coreg 3.125 mg p.o. twice daily. 3. Dorzolamide, latanoprost, and timolol eye drops as before. 4. Synthroid 75 mcg p.o. daily. 5. Ranexa 500 mg p.o. twice daily. 6. Risperdal 0.5 mg p.o. twice daily. 7. Eliquis 2.5 mg p.o. twice daily. 8. Amiodarone 400 mg p.o. twice daily for 2 weeks, then 200 mg p.o. twice daily for 2 weeks, then 200 mg p.o. daily thereafter. ALLERGIES: ALLERGIC TO PENICILLIN. DISCHARGE PLAN: The patient to follow up with her primary care physician at the intermediate in 1 week. She needs to follow up with Dr. Lin in 3 to 4 weeks. BRIEF COURSE DURING HOSPITALIZATION: The patient initially was sent over from [facility] on the for altered mental state. The patient was found to be in atrial fibrillation with RVR on arrival here. She has had a CT of brain done on the day of admission, which did not reveal any acute intracranial abnormalities. The patient initially was placed on Cardizem drip, then amiodarone drip, and was transitioned to oral amiodarone. She has had consultation with Dr. Lin for Cardiology. This was new-onset atrial fibrillation. She was also placed on low-dose Eliquis twice daily. If the patient were to have falls at the intermediate, Eliquis needs to be discontinued. She needs to follow up with Dr. Lin in 3 to 4 weeks. She has otherwise remained hemodynamically stable during her stay here. The patient has advanced dementia and does not interact much or talk legibly. She was ambulated with Physical therapy on the floor minimally. Please see a [id number] documentation for the day of discharge on [employer]. A total of 35 minutes was spent on discharge plan. Job ID: [id number] MTDD
--- NOTE | 2019-08-31 13:07 | EKG ---
Test Reason : CP Blood Pressure : / mmHG Vent. Rate : 082 BPM Atrial Rate : 082 BPM P-R Int : 214 ms QRS Dur : 090 ms QT Int : 442 ms P-R-T Axes : 089 043 054 degrees QTc Int : 516 ms Sinus rhythm with 1st degree A-V block with Premature supraventricular complexes Anteroseptal infarct Prolonged QT Abnormal ECG Confirmed by ARIAN REDDING ([id number]) on 08/31/2019 1:06:47 PM Referred By: CLEMENTINE Confirmed By:ARIAN REDDING
== END 2019-08-30 13:48 | DRG 309 ==
LOC: ERS 16:16 → 2SE 18:42
PROVIDERS: ADMIT Internal Medicine; ATTEND Internal Medicine
DX: I48.91 Unspecified atrial fibrillation (principal); R47.01 Aphasia; F02.81 Dementia in other diseases classified elsewhere, unspecified severity, with behavioral disturbance; I25.10 Atherosclerotic heart disease of native coronary artery without angina pectoris; E03.9 Hypothyroidism, unspecified; K21.9 Gastro-esophageal reflux disease without esophagitis; Z66 Do not resuscitate; I10 Essential (primary) hypertension; G30.9 Alzheimer's disease, unspecified; I25.2 Old myocardial infarction; Z86.73 Personal history of transient ischemic attack (TIA), and cerebral infarction without residual deficits; Z88.0 Allergy status to penicillin; Z79.82 Long term (current) use of aspirin; Z79.899 Other long term (current) drug therapy; Z79.890 Hormone replacement therapy; Z93.2 Ileostomy status; Z95.5 Presence of coronary angioplasty implant and graft; Z79.02 Long term (current) use of antithrombotics/antiplatelets
CPT/HCPCS: 36415; 36416; 70450; 71045; 80048; 80053; 81003; 82550; 82553; 82565; 83605; 83735; 84439; 84443; 84481; 84484; 85014; 85018; 85025; 85049; 85610; 85730; 87040; 87086; 90471; 90670; 93005; 93010; 93306; A4353; G0009; J0282; J0360; J1650; J2405; J3490; J7070

== ENCOUNTER 2019-09-27 15:25 | Emergency (ER) | payer MEDICARE ==
--- NOTE | 2019-09-27 16:38 | CT ---
CT Brain WO Con: 09/27/2019 3:50 PM CLINICAL HISTORY: Fall and on blood thinners. IMAGING TECHNIQUE: Multiple CT images were obtained of the brain without IV contrast. COMPARISON: CT the brain without contrast dated August 25, 2019 FINDINGS: Brain: There is a generalized cerebral and cerebellar atrophy which appears similar appearing. Mild chronic small vessel white matter ischemic changes stable. No acute infarct, hemorrhage or hydrocephalus is present. Ventricles: Normal. No hydrocephalus. Skull: Intact. Visualized Paranasal sinuses: There is mucosal thickening within the ethmoid air cells appears slight ly more pronounced than on the prior exam. Mastoid air cells:Clear. Extracranial soft tissues:There is a frontal scalp contusion. IMPRESSION: No acute intracranial abnormality. Frontal scalp contusion
--- NOTE | 2019-09-27 16:43 | CT ---
CT cervical spine noncontrast HISTORY: Neck injury. Fall. FINDINGS: There is reversal of the normal lordotic curvature. Minimal degenerative spondylolisthesis at the C4-5 and C5-6 levels. Osteophytosis throughout the facets. No acute fracture or dislocation evident. Cervicothoracic alignment is maintained. Dystrophic calcification incidentally noted within the atrophied thyroid gland. IMPRESSION: Prominent osseous degenerative changes cervical spine. No acute osseous abnormalities are demonstrated.
[2019-09-27] MEDS ORDERED: Bacitracin 1 PK ONE (17:33)
== END 2019-09-27 19:16 ==
LOC: ERS 15:25
DX: S00.83XA Contusion of other part of head, initial encounter (principal); I48.91 Unspecified atrial fibrillation; E78.5 Hyperlipidemia, unspecified; I25.2 Old myocardial infarction; K21.9 Gastro-esophageal reflux disease without esophagitis; E03.9 Hypothyroidism, unspecified; I25.10 Atherosclerotic heart disease of native coronary artery without angina pectoris; F03.90 Unspecified dementia, unspecified severity, without behavioral disturbance, psychotic disturbance, mood disturbance, and anxiety; Z79.899 Other long term (current) drug therapy; Z79.82 Long term (current) use of aspirin; W18.30XA Fall on same level, unspecified, initial encounter; Z79.891 Long term (current) use of opiate analgesic
CPT/HCPCS: 70450; 72125